=== PATIENT | female | born 1990 | race Caucasian/White ===

== ENCOUNTER 2016-11-18 16:02 | Emergency (ER) | payer SELFPAY ==
--- NOTE | 2016-11-18 16:10 | NUR ---
CALLED PT. NO ANSWER. WILL CALL AGAIN.
--- NOTE | 2016-11-18 16:30 | NUR ---
CALLED PT. NO ANSWER. WILL CALL AGAIN.
--- NOTE | 2016-11-18 17:21 | NUR ---
PATIENT LEFT WITHOUT BEING SEEN BY DR. ALVARADO. NO FURTHER CARE PROVIDED FOR PATIENT.
== END 2016-11-18 17:21 | disposition left against medical advice (07) ==
LOC: MED 16:02
DX: Z53.21 Procedure and treatment not carried out due to patient leaving prior to being seen by health care provider (principal)

== ENCOUNTER 2022-09-22 14:15 | Emergency (ER) | payer OTHER ==
[~2022-09-22] VITALS: Ht 157.5 cm; Wt 56.7 kg
[2022-09-22 14:20] VITALS: BP 111/69
--- NOTE | 2022-09-22 14:28 | NUR ---
PT AMBULATED TO BED 9
--- NOTE | 2022-09-22 14:43 | NUR ---
MD DAIGLE AT BEDSIDE FOR EVALUATION
[2022-09-22 14:50] LABS: APPEARANCE,URINE CLEAR (CLEAR); BILIRUBIN,URINE NEGATIVE (NEGATIVE); BLOOD, URINE 1+ (NEGATIVE); COLOR,URINE YELLOW (YELLOW); LEUKOCYTE ESTERASE ,URINE NEGATIVE (NEGATIVE); NITRITE, URINE NEGATIVE (NEGATIVE); UGLUCOSE NEGATIVE (NEGATIVE)
--- NOTE | 2022-09-22 14:50 | NUR ---
32YO FEMALE PT C/O STABBING LUQ/LLQ ABD PAIN X3DAYS. REPORT SUDDEN INTERMITTENT ONSETS AND STATES VAGINAL SPOTTING. PT CURRENTLY LMP 09/02/22. +N/V-blood. LUQ/LLQ TENDER TO TOUCH. DENIES DIARRHEA, CHEST PAIN, FEVER, CHILLS OR SOB. PT AAOX4, HOB POSITIONED PER COMFORT HX: THYROID, GALLSTONES NKA
[2022-09-22] MEDS ORDERED: ACETAMINOPHEN 325 MG TAB PO ONE (14:55)
[2022-09-22] MEDS ORDERED: ACETAMINOPHEN 325 MG TAB ONE (14:56)
--- NOTE | 2022-09-22 15:00 | NUR ---
us at bedside
--- NOTE | 2022-09-22 15:04 | NUR ---
lab at bedside
[2022-09-22 15:14] LABS: BASOPHILS % (AUTO) 0.5 % (0.0-2.0); EOSINOPHILS # (AUTO) 0.3 K/uL (0-0.4); EOSINOPHILS % (AUTO) 3.9 % (0.0-4.0); HEMATOCRIT 37.7 % (36-48); HEMOGLOBIN 12.3 g/dL (12.0-16.0); LYMPHOCYTES # (AUTO) 1.3 K/uL (2.5-16.5); MEAN CORPUSCULAR HEMOGLOBIN 25 pg (27-31); MEAN CORPUSCULAR HGB CONC 33 g/dL (33-37); MEAN CORPUSCULAR VOLUME 76.8 fL (80-94); MONOCYTES # (AUTO) 0.4 K/uL (0.8-1.0); MONOCYTES % (AUTO) 6.4 % (1.7-9.3); NEUTROPHILS # (AUTO) 4.6 K/uL (1.8-7.7); NEUTROPHILS % (AUTO) 69.2 % (42.2-75.2); PLATELET COUNT (AUTO) 176 K/uL (140-450); RED BLOOD CELL COUNT(AUTO) 4.91 MIL/uL (4.20-5.40); RED CELL DISTRIBUTION WIDTH 15.7 % (11.6-13.7); WHITE BLOOD COUNT (AUTO) 6.6 K/uL (4.8-10.8)
--- NOTE | 2022-09-22 15:21 | NUR ---
The patient's care was reviewed and supervised by EFRAÍN ENGEL RN.
[2022-09-22 15:29] LABS: ALBUMIN 3.8 g/dL (3.4-5.0); ANION GAP 10.8 (8-16); CARBON DIOXIDE 26.2 mmol/L (21-32); CREATININE 0.7 mg/dL (0.6-1.3); TOTAL BILIRUBIN 0.2 mg/dL (0.0-1.0)
[2022-09-22 16:15] VITALS: BP 112/69
[2022-09-22] MEDS ORDERED: CEPH-588 PO (16:35)
[2022-09-22] MEDS ORDERED: ACET-10509 PO (16:35)
--- NOTE | 2022-09-22 16:41 | NUR ---
Patient discharged with v/s stable. Written and verbal after care instructions FOR THREATENED MISSCARRIAGE, OVARIAN CYST AND ABD PAIN DURING given and explained. Patient alert, oriented and verbalized understanding of instructions. Ambulatory with steady gait. All questions addressed prior to discharge. ID band removed. Patient advised to follow up with PMD. Rx of TYLENOL XTRA STRENGTH AND KELFEX given. Opportunity to ask questions provided and answered.
== END 2022-09-22 16:41 | disposition home or self-care (01) ==
LOC: MED 14:15
DX: O20.0 Threatened abortion (principal); O34.81 Maternal care for other abnormalities of pelvic organs, first trimester; O28.8 Other abnormal findings on antenatal screening of mother; N83.291 Other ovarian cyst, right side; Z3A.01 Less than 8 weeks gestation of pregnancy; Z79.899 Other long term (current) drug therapy
CPT/HCPCS: 36415; 76817; 80053; 81001; 81025; 83690; 84702; 85025; 86900; 86901; 87086; 99284; Q0092